=== PATIENT | female | born 1950 | race Caucasian/White ===

== ENCOUNTER → 2018-03-26 | Outpatient (CLI) | payer MEDICARE | END | disposition home or self-care (01) | LOC: RAD 09:44 | PROVIDERS: ATTEND Otolaryngology | DX: K22.2 Esophageal obstruction (principal) | CPT/HCPCS: 74230 ==

== ENCOUNTER 2021-03-07 07:47 | Day surgery (SDC) | payer MEDICARE ==
[2021-03-07] MEDS ORDERED: MIDAZOLAM 1 MG/ML, 5ML ONE (10:01)
[2021-03-07] MEDS ORDERED: FLUMAZENIL 0.1 MG/1 ML, 5ML ONE (10:01)
[2021-03-07] MEDS ORDERED: FENTANYL PF 100 MCG/2ML ONE ×2 (10:01)
[2021-03-07] MEDS ORDERED: NALOXONE 1 MG/ML, 2ML ONE (10:01)
== END 2021-03-07 12:00 | disposition home or self-care (01) ==
LOC: OUT 07:47 → EDSTATUS 09:00 → OUT 12:00
PROVIDERS: ATTEND Physician Assistant Surgical
DX: M47.26 Other spondylosis with radiculopathy, lumbar region (principal); M48.061 Spinal stenosis, lumbar region without neurogenic claudication; M48.02 Spinal stenosis, cervical region; M25.78 Osteophyte, vertebrae; I10 Essential (primary) hypertension; K21.9 Gastro-esophageal reflux disease without esophagitis; E07.9 Disorder of thyroid, unspecified; Z79.899 Other long term (current) drug therapy; Z82.49 Family history of ischemic heart disease and other diseases of the circulatory system; Z82.61 Family history of arthritis
CPT/HCPCS: 72141; 72148; 99156; 99157; J2250; J3010; J2310